=== PATIENT | male | born 1970 | race Caucasian/White ===

== ENCOUNTER 2016-11-25 13:40 | Inpatient (IN) | payer OTHER ==
[2016-11-25 14:29] VITALS: BMI 26.7
--- NOTE | 2016-11-25 17:05 | HP ---
CIWA Score - CIWA Score Nausea/Vomitin Muscle Tremors: 2 Anxiety: 3 Agitation: 2 Paroxysmal Sweats: 3 Orientation: 0-Oriented Tacttile Disturbances: 2-Mild Itch/Numbness/Burn Auditory Disturbances: 0-None Visual Disturbances: 0-None Headache: 0-None Present CIWA-Ar Total Score: 14 Admission ROS BHS - HPI Chief Complaint: I need help to stop using drug and alcohol. History of Present Illness: pt with h/o chronic alcoholism and crack abuse seeking detox. Exam Limitations: No Limitations - Ebola screening Have you traveled outside of the country in the last 21 days: No Have you had contact with anyone from an Ebola affected area: No Have you been sick,other than usual withdrawal symptoms: No Do you have a fever: No - Review of Systems Constitutional: Loss of Appetite, Malaise, Changes in sleep EENT: reports: Dental Problems Respiratory: reports: No Symptoms reported Cardiac: reports: No Symptoms Reported GI: reports: Nausea, Indigestion, Abdominal cramping : reports: No Symptoms Reported Musculoskeletal: reports: Joint Pain, Muscle Pain, Joint Stiffness Neuro: reports: Numbness (hands) Endocrine: reports: No Symptoms Reported Hematology: reports: No Symptoms Reported Psychiatric: reports: No Sypmtoms Reported Other Systems: Reviewed and Negative Patient History - Patient Medical History Hx Anemia: No Hx Asthma: No Hx Chronic Obstructive Pulmonary Disease (COPD): No Hx Cancer: No Hx Cardiac Disorders: No Hx Congestive Heart Failure: No Hx Hypertension: No Hx Hypercholesterolemia: No Hx Pacemaker: No HX Cerebrovascular Accident: No Hx Seizures: No Hx Dementia: No Hx Diabetes: No Hx Gastrointestinal Disorders: No Hx Liver Disease: No Hx Genitourinary Disorders: No Hx Sexually Transmitted Disorders: No Hx Renal Disease (ESRD): No Hx Thyroid Disease: No Hx Human Immunodeficiency Virus (HIV): Yes (1996 atripla ) Hx Hepatitis C: Yes (s/p tx. inf. rib ) Hx Depression: No Hx Suicide Attempt: No Hx Bipolar Disorder: No Hx Schizophrenia: No Other Medical History: h/o lbp rt sciatica - Patient Surgical History Hx Appendectomy: Yes - PPD History Documented Results: Negative w/o proof PPD to be Administered?: Yes - Reproductive History Patient is a Female of Child Bearing Age (11 -55 yrs old): No - Smoking Cessation Smoking history: Current some day smoker Aproximately how many cigarettes per day: 0 Cigars Per Day: 1 Hx Chewing Tobacco Use: No Initiated information on smoking cessation: Yes 'Breaking Loose' booklet given: 11/25/16 - Substance & Tx. History Hx Alcohol Use: No Hx Substance Use: Yes Substance Use Type: Alcohol, Cocaine, Heroin Hx Substance Use Treatment: Yes - Substances Abused Alcohol Route: Oral Frequency: Daily Amount used: vodka 1 pt. Age of first use: 14 Date of Last Use: 11/24/16 Cocaine Route: Injection Frequency: Daily Amount used: $10-20./d Age of first use: 17 Date of Last Use: 11/24/16 Family Disease History - Family Disease History Family History: Denies Family Disease History: Heart Disease: Mother (cad , [place]), [place]: Father (prostate) Admission Physical Exam [facility] - Vital Signs Vital Signs: Vital Signs - 24 hr 11/25/16 14:26 Temperature 98.6 F Pulse Rate 78 Respiratory 18 Rate Blood Pressure 128/58 - Physical General Appearance: Yes: Appropriately Dressed, Tremorous, Anxious HEENTM: Yes: EOMI, Hearing grossly Normal, Normocephalic, Normal Voice, MOE Respiratory: Yes: Chest Non-Tender, Lungs Clear, Normal Breath Sounds, No Respiratory Distress Neck: Yes: Supple, Trachea in good position Breast: Yes: Within Normal Limits Cardiology: Yes: Regular Rhythm, Regular Rate, S1, S2 Abdominal: Yes: Non Tender, Flat, Soft, Surgical Scar (rlq scar well healed) Genitourinary: Yes: Within Normal Limits Back: Yes: Decreased Range of Motion Musculoskeletal: Yes: Back pain, Muscle Pain Extremities: Yes: Tremors Neurological: Yes: software design engineer II-XII NML intact, Fully Oriented, Alert, Normal Response Integumentary: Yes: Moist Lymphatic: Yes: Within Normal Limits - Diagnostic (1) Alcohol dependence with uncomplicated withdrawal Current Visit: Yes Status: Chronic (2) Cocaine abuse Current Visit: Yes Status: Chronic (3) HIV (human immunodeficiency virus infection) Current Visit: Yes Status: Chronic (4) Right sided sciatica Current Visit: Yes Status: Chronic Cleared for Admission [facility] - Detox or Rehab [facility] Level of Care: Medically Managed Detox Regimen/Protocol: Librium [facility] Breath Alcohol Content Breath Alcohol Content: 0 Urine Drug Screen - Results Drug Screen Negative: No Urine Drug Screen Results: CLAUDIA-Cocaine, OPI-Opiates, MTD-Methadone
[2016-11-25] MEDS ORDERED: MAGNESIUM CITRATE 300 ML BOTTLE PO PRN (17:21)
[2016-11-25] MEDS ORDERED: IBUPROFEN 400 MG TABLET (FP) PO PRN (17:21)
[2016-11-25] MEDS ORDERED: MENTHOL/PHENOL 1 EACH UD MM PRN (17:21)
[2016-11-25] MEDS ORDERED: LOPERAMIDE HCL 2 MG CAPSULE PO PRN (17:21)
[2016-11-25] MEDS ORDERED: hydrOXYzine PAMOATE 25 MG CAPSULE (FP) PO PRN (17:21)
[2016-11-25] MEDS ORDERED: MAGNESIUM HYDROX 2400MG/30ML ORAL SUSPENSION 30 ML CUP PO PRN (17:21)
[2016-11-25] MEDS ORDERED: NICOTINE POLACRILEX 2 MG GUM BUC PRN (17:21)
[2016-11-25] MEDS ORDERED: P-EPHED 60MG/TRIPROLIDI 2.5MG TABLET PO PRN (17:21)
[2016-11-25] MEDS ORDERED: ACETAMINOPHEN 325 MG TABLET (FP) PO PRN (17:21)
[2016-11-25] MEDS ORDERED: MAG HYDROX/AL HYDROX/SIMETH 30 ML UNIT-DOSE CUP PO PRN (17:21)
[2016-11-25] MEDS ORDERED: guaiFENesin/D-METHORPHAN HB 10 ML UNIT-DOSE CUPS PO PRN (17:21)
[2016-11-25] MEDS: chlordiazePOXIDE HCL 25 MG CAPSULE PO PRN (19:45)
[2016-11-25] MEDS: diphenhydrAMINE HCL 50 MG CAPSULE PO PRN (22:12)
[2016-11-25] MEDS: THIAMINE HCL 100 MG TABLET (FP) PO SCH (22:12)
[2016-11-25] MEDS: chlordiazePOXIDE HCL 25 MG CAPSULE PO SCH (22:12)
[2016-11-26 00:37] LABS: URINE APPEARANCE CLEAR; URINE BILIRUBIN NEGATIVE (NEGATIVE); URINE BLOOD NEGATIVE (NEGATIVE); URINE COLOR AMBER; URINE GLUCOSE (UA) NEGATIVE (NEGATIVE); URINE KETONE NEGATIVE (NEGATIVE); URINE LEUK ESTERASE NEGATIVE (NEGATIVE); URINE NITRITE NEGATIVE (NEGATIVE); URINE UROBILINOGEN 4.0 E.U/dl E.U./dl (0.2-1.0)
[2016-11-26 00:51] LABS: URINE PROTEIN 1+ (NEGATIVE)
[2016-11-26 00:58] LABS: URINE MUCUS MODERATE; URINE RBC 3 /hpf (0-3); URINE WBC 1 /hpf (3-5)
[2016-11-26] MEDS: chlordiazePOXIDE HCL 25 MG CAPSULE PO SCH ×4 (05:59→22:15)
[2016-11-26] MEDS ORDERED: METHADONE HCL 40 MG DISPERSABLE TABLET PO SCH (09:30)
[2016-11-26] MEDS ORDERED: METHADONE HCL 10 MG TABLET ONE (10:04)
[2016-11-26] MEDS ORDERED: METHADONE HCL 40 MG DISPERSABLE TABLET ONE (10:04)
[2016-11-26] MEDS: METHADONE 80 MG, METHADONE 20 MG PO SCH (10:12)
[2016-11-26] MEDS: chlordiazePOXIDE HCL 25 MG CAPSULE PO PRN (10:12)
[2016-11-26] MEDS: PRENATAL VITAMINS W/ FOLIC ACID TABLET (FP) PO SCH (10:12)
[2016-11-26 10:14] LABS: MCH 30.2 pg (25.7-33.7); MCHC 33.1 g/dl (32.0-35.9); MEAN CELL VOLUME 91.1 fl (80-96); MEAN PLT VOLUME 10.4 fl (7.5-11.1); PLATELET COUNT 110 K/MM3 (134-434); RDW 14.1 % (11.9-15.9); WHITE BLOOD COUNT 3.6 K/mm3 (4.0-10.0)
[2016-11-26] MEDS: EMTRICITABINE 200MG/TENOFOVIR 300MG PO SCH (10:14)
[2016-11-26] MEDS: EFAVIRENZ 600 MG TABLET PO SCH (10:14)
--- NOTE | 2016-11-26 10:20 | CONSULT ---
[facility] Psychiatric Consult - Data Date of interview: 11/26/16 Admission source: [facility] Identifying data: First admission to [facility] for this 46 y/o male seeking detox treatment for alcohol,cocaine and heroin dependence.Patient is single without children,domiciled,unemployed and supported on [employer] funds. Substance Abuse History: - Smoking Cessation. Smoking history: Current some day smoker. Aproximately how many cigarettes per day: 0. Cigars Per Day: 1. Hx Chewing Tobacco Use: No. Initiated information on smoking cessation: Yes. ' Breaking Loose' booklet given: 11/25/16. - Substance & Tx. History. Hx Alcohol Use: No. Hx Substance Use: Yes. Substance Use Type: Alcohol, Cocaine, Heroin. Hx Substance Use Treatment: Yes. - Substances Abused. Alcohol. Route: Oral. Frequency: Daily. Amount used: vodka 1 pt. Age of first use: 14. Date of Last Use: 11/24/16. Cocaine. Route: Injection. Frequency: Daily. Amount used: $10-20./d. Age of first use: 17. Date of Last Use: . Confirmed by patient. Medical History: HIV infection since 1996 (on ART agents),hepatitis C,lower back pain and sciatica. Psychiatric History: Patient admits to one psychiatric hospitalization (1996) at [facility].Precipitant : discovery of seropositivity for HIV.Diagnosed with Stress Disorder.Mr Armstrong indicates that he was prescribed medications (names not recalled) that he never utilized.Currrently on methadone maintenance (100 mg/day).Patient denies history of suicide attempts. Physical/Sexual Abuse/Trauma History: Patient denies. Additional Comment: Urine Drug Screen Results: CLAUDIA-Cocaine, OPI-Opiates, MTD- Methadone.Noted. Mental Status Exam - Mental Status Exam Alert and Oriented to: Time, Place, Person Cognitive Function: Good Patient Appearance: Well Groomed Mood: Hopeful, Euthymic Affect: Appropriate, Normal Range Patient Behavior: Fatigued, Appropriate, Cooperative Speech Pattern: Clear Voice Loudness: Normal Thought Process: Goal Oriented Thought Disorder: Not Present Hallucinations: Denies Suicidal Ideation: Denies Homicidal Ideation: Denies Insight/Judgement: Poor Sleep: Poorly, Difficulty falling asleep Appetite: Good Muscle strength/Tone: Normal Gait/Station: Normal Psychiatric Findings - Problem List ([place] 1, 2,3) (1) Alcohol dependence with uncomplicated withdrawal Current Visit: Yes Status: Acute (2) Cocaine dependence Current Visit: Yes Status: Acute (3) Opioid dependence on agonist therapy Current Visit: Yes Status: Acute (4) HIV (human immunodeficiency virus infection) Current Visit: Yes Status: Chronic (5) Right sided sciatica Current Visit: Yes Status: Chronic (6) Insomnia Current Visit: Yes Status: Acute - Initial Treatment Plan Initial Treatment Plan: Psychoeducation.Detoxification.Seroquel 50 mg po at bedtime (patient's request).Side effects/benefits discussed with the patient.Observation.
--- NOTE | 2016-11-26 10:23 | EKG ---
Test Reason : Blood Pressure : / mmHG Vent. Rate : 057 BPM Atrial Rate : 057 BPM P-R Int : 172 ms QRS Dur : 086 ms QT Int : 424 ms P-R-T Axes : 061 054 048 degrees QTc Int : 412 ms SINUS BRADYCARDIA NO PREVIOUS ECGS AVAILABLE Confirmed by PIETER VELEZ MD ([id number]) on 11/26/2016 10:23:09 AM Referred By: Dominick Mays Confirmed By:PIETER VELEZ MD
--- NOTE | 2016-11-26 12:11 | PN ---
S CIWA - CIWA Score Nausea/Vomitin Muscle Tremors: 4-Moderate,w/Arms Extend Anxiety: 2 Agitation: 2 Paroxysmal Sweats: 3 Orientation: 0-Oriented Tacttile Disturbances: 2-Mild Itch/Numbness/Burn Auditory Disturbances: 0-None Visual Disturbances: 2-Mild Sensitivity Headache: 0-None Present CIWA-Ar Total Score: 18 S Progress Note (SOAP) Subjective: Sweating, Body Aches, Stomach Cramping, Tremors, Interrupted sleep. Objective: PT. A & O X 3. 11/26/16 12:10 Vital Signs Temperature 97.3 F L 11/26/16 10:41 Pulse Rate 111 H 11/26/16 10:41 Respiratory Rate 18 11/26/16 10:41 Blood Pressure 100/70 11/26/16 10:41 O2 Sat by Pulse Oximetry (%) Laboratory Last Values WBC 3.6 K/mm3 (4.0-10.0) L 11/26/16 07:00 RBC 4.96 M/mm3 (4.00-5.60) 11/26/16 07:00 Hgb 14.9 GM/dL (11.7-16.9) 11/26/16 07:00 Hct 45.1 % (35.4-49) 11/26/16 07:00 MCV 91.1 fl (80-96) 11/26/16 07:00 MCHC 33.1 g/dl (32.0-35.9) 11/26/16 07:00 RDW 14.1 % (11.9-15.9) 11/26/16 07:00 Plt Count 110 K/MM3 (134-434) L 11/26/16 07:00 MPV 10.4 fl (7.5-11.1) 11/26/16 07:00 Urine Color Marely 11/25/16 23:30 Urine Appearance Clear 11/25/16 23:30 Urine pH 6.0 (5.0-8.0) 11/25/16 23:30 Ur Specific [place] 1.030 (1.001-1.035) 11/25/16 23:30 Urine Protein 1+ (NEGATIVE) H 11/25/16 23:30 Urine Glucose (UA) Negative (NEGATIVE) 11/25/16 23:30 Urine Ketones Negative (NEGATIVE) 11/25/16 23:30 Urine Blood Negative (NEGATIVE) 11/25/16 23:30 Urine Nitrite Negative (NEGATIVE) 11/25/16 23:30 Urine Bilirubin Negative (NEGATIVE) 11/25/16 23:30 Urine Urobilinogen 4.0 e.u/dl E.U./dl (0.2-1.0) 11/25/16 23:30 Ur Leukocyte Esterase Negative (NEGATIVE) 11/25/16 23:30 Urine RBC 3 /hpf (0-3) 11/25/16 23:30 Urine WBC 1 /hpf (3-5) 11/25/16 23:30 Ur Epithelial Cells Rare /hpf (FEW) 11/25/16 23:30 Urine Mucus Moderate 11/25/16 23:30 LABS NOTED. Assessment: 11/26/16 12:11 WITHDRAWAL SYMPTOMS. Plan: CONTINUE DETOX. ADVISED PATIENT TO FOLLOW-UP WITH [facility]INEER / REHAB MEDICAL PROVIDER AFTER DISCHARGE FROM DETOX FOR GENERAL MEDICAL ASSESSMENT AND FOR ANY ABNORMAL ADMISSION LAB VALUES.
[2016-11-26 12:15] LABS: ALK PHOS 126 U/L (45-117); ANION GAP 12 (8-16); BILIRUBIN,TOTAL 0.3 mg/dL (0.2-1.0); CALCIUM 9.2 mg/dL (8.5-10.1); CO2 27 mmol/L (21-32); CREATININE 0.9 mg/dL (0.7-1.3); GLUCOSE,RANDOM 89 mg/dL (74-106); SGOT/AST 41 U/L (15-37); SGPT/ALT 47 U/L (12-78); TOT PROT 7.9 g/dl (6.4-8.2)
[2016-11-26] MEDS: QUEtiapine FUMARATE 50 MG TABLET PO SCH (22:15)
[2016-11-26] MEDS: THIAMINE HCL 100 MG TABLET (FP) PO SCH (22:15)
[2016-11-26] MEDS: diphenhydrAMINE HCL 50 MG CAPSULE PO PRN (22:16)
[2016-11-27] MEDS ORDERED: METHADONE HCL 40 MG DISPERSABLE TABLET ONE (03:39)
[2016-11-27] MEDS ORDERED: METHADONE HCL 10 MG TABLET ONE (03:39)
[2016-11-27] MEDS: METHADONE 80 MG, METHADONE 20 MG PO SCH (05:35)
[2016-11-27] MEDS: chlordiazePOXIDE HCL 25 MG CAPSULE PO SCH ×3 (05:35→17:20)
[2016-11-27] MEDS: EFAVIRENZ 600 MG TABLET PO SCH (10:30)
[2016-11-27] MEDS: PRENATAL VITAMINS W/ FOLIC ACID TABLET (FP) PO SCH (10:30)
[2016-11-27] MEDS: EMTRICITABINE 200MG/TENOFOVIR 300MG PO SCH (10:30)
--- NOTE | 2016-11-27 13:05 | PN ---
[facility] CIWA - CIWA Score Nausea/Vomitin-No Nausea/No Vomiting Muscle Tremors: 3 Anxiety: 4-Mod. Anxious/Guarded Agitation: 3 Paroxysmal Sweats: 3 Orientation: 0-Oriented Tacttile Disturbances: 0-None Auditory Disturbances: 0-None Visual Disturbances: 0-None Headache: 0-None Present CIWA-Ar Total Score: 13 BHS Progress Note (SOAP) Subjective: Anxiety,tremors,sweating,interrupted sleep,restless Objective: 11/27/16 13:04 Vital Signs - 8 hr 11/27/16 11/27/16 06:19 09:27 Temperature 97.9 F 96.0 F L Pulse Rate 80 72 Respiratory 18 18 Rate Blood Pressure 102/72 99/68 Laboratory Tests 11/25/16 11/26/16 11/26/16 23:30 07:00 07:00 WBC 3.6 L RBC 4.96 Hgb 14.9 Hct 45.1 MCV 91.1 MCHC 33.1 RDW 14.1 Plt Count 110 L MPV 10.4 Sodium 139 Potassium 4.0 Chloride 100 Carbon Dioxide 27 Anion Gap 12 BUN 10 Creatinine 0.9 Creat Clearance w eGFR > 60 Random Glucose 89 Calcium 9.2 Total Bilirubin 0.3 AST 41 H ALT 47 Alkaline Phosphatase 126 H Total Protein 7.9 Albumin 4.0 Urine Color Marely Urine Appearance Clear Urine pH 6.0 Ur Specific [place] 1.030 Urine Protein 1+ H Urine Glucose (UA) Negative Urine Ketones Negative Urine Blood Negative Urine Nitrite Negative Urine Bilirubin Negative Urine Urobilinogen 4.0 e.u/dl Ur Leukocyte Esterase Negative Urine RBC 3 Urine WBC 1 Ur Epithelial Cells Rare Urine Mucus Moderate RPR Titer 11/26/16 07:00 WBC RBC Hgb Hct MCV MCHC RDW Plt Count MPV Sodium Potassium Chloride Carbon Dioxide Anion Gap BUN Creatinine Creat Clearance w eGFR Random Glucose Calcium Total Bilirubin AST ALT Alkaline Phosphatase Total Protein Albumin Urine Color Urine Appearance Urine pH Ur Specific [place] Urine Protein Urine Glucose (UA) Urine Ketones Urine Blood Urine Nitrite Urine Bilirubin Urine Urobilinogen Ur Leukocyte Esterase Urine RBC Urine WBC Ur Epithelial Cells Urine Mucus RPR Titer Nonreactive labs noted Assessment: 11/27/16 13:05 Withdrawal sx. Plan: Continue detox
[2016-11-27] MEDS: chlordiazePOXIDE HCL 25 MG CAPSULE PO PRN (14:34)
[2016-11-27] MEDS: diphenhydrAMINE HCL 50 MG CAPSULE PO PRN (22:17)
[2016-11-27] MEDS: THIAMINE HCL 100 MG TABLET (FP) PO SCH (22:17)
[2016-11-27] MEDS: chlordiazePOXIDE 5 MG CAPSULE PO SCH (22:17)
[2016-11-27] MEDS: QUEtiapine FUMARATE 50 MG TABLET PO SCH (22:17)
[2016-11-27] MEDS: IBUPROFEN 600 MG TABLET (FP) PO PRN (22:19)
[2016-11-28] MEDS ORDERED: METHADONE HCL 10 MG TABLET ONE (03:07)
[2016-11-28] MEDS ORDERED: METHADONE HCL 40 MG DISPERSABLE TABLET ONE (03:07)
[2016-11-28] MEDS: chlordiazePOXIDE 5 MG CAPSULE PO SCH ×3 (05:46→17:21)
[2016-11-28] MEDS: METHADONE 80 MG, METHADONE 20 MG PO SCH (05:46)
[2016-11-28] MEDS: EMTRICITABINE 200MG/TENOFOVIR 300MG PO SCH (10:15)
[2016-11-28] MEDS: PRENATAL VITAMINS W/ FOLIC ACID TABLET (FP) PO SCH (10:15)
[2016-11-28] MEDS: EFAVIRENZ 600 MG TABLET PO SCH (10:15)
--- NOTE | 2016-11-28 11:03 | PN ---
BHS Progress Note (SOAP) Subjective: Sweating,interrupted sleep,restless Objective: 11/28/16 11:02 Vital Signs - 8 hr 11/28/16 11/28/16 11/28/16 03:31 06:23 09:34 Temperature 97.0 F L 97.2 F L Pulse Rate 69 72 Respiratory 18 16 16 Rate Blood Pressure 93/64 95/65 Laboratory Last Values WBC 3.6 K/mm3 (4.0-10.0) L 11/26/16 07:00 RBC 4.96 M/mm3 (4.00-5.60) 11/26/16 07:00 Hgb 14.9 GM/dL (11.7-16.9) 11/26/16 07:00 Hct 45.1 % (35.4-49) 11/26/16 07:00 MCV 91.1 fl (80-96) 11/26/16 07:00 MCHC 33.1 g/dl (32.0-35.9) 11/26/16 07:00 RDW 14.1 % (11.9-15.9) 11/26/16 07:00 Plt Count 110 K/MM3 (134-434) L 11/26/16 07:00 MPV 10.4 fl (7.5-11.1) 11/26/16 07:00 Sodium 139 mmol/L (136-145) 11/26/16 07:00 Potassium 4.0 mmol/L (3.5-5.1) 11/26/16 07:00 Chloride 100 mmol/L (98-107) 11/26/16 07:00 Carbon Dioxide 27 mmol/L (21-32) 11/26/16 07:00 Anion Gap 12 (8-16) 11/26/16 07:00 BUN 10 mg/dL (7-18) 11/26/16 07:00 Creatinine 0.9 mg/dL (0.7-1.3) 11/26/16 07:00 Creat Clearance w eGFR > 60 (>60) 11/26/16 07:00 Random Glucose 89 mg/dL (74-106) 11/26/16 07:00 Calcium 9.2 mg/dL (8.5-10.1) 11/26/16 07:00 Total Bilirubin 0.3 mg/dL (0.2-1.0) 11/26/16 07:00 AST 41 U/L (15-37) H 11/26/16 07:00 ALT 47 U/L (12-78) 11/26/16 07:00 Alkaline Phosphatase 126 U/L (45-117) H 11/26/16 07:00 Total Protein 7.9 g/dl (6.4-8.2) 11/26/16 07:00 Albumin 4.0 g/dl (3.4-5.0) 11/26/16 07:00 Urine Color Marely 11/25/16 23:30 Urine Appearance Clear 11/25/16 23:30 Urine pH 6.0 (5.0-8.0) 11/25/16 23:30 Ur Specific [place] 1.030 (1.001-1.035) 11/25/16 23:30 Urine Protein 1+ (NEGATIVE) H 11/25/16 23:30 Urine Glucose (UA) Negative (NEGATIVE) 11/25/16 23:30 Urine Ketones Negative (NEGATIVE) 11/25/16 23:30 Urine Blood Negative (NEGATIVE) 11/25/16 23:30 Urine Nitrite Negative (NEGATIVE) 11/25/16 23:30 Urine Bilirubin Negative (NEGATIVE) 11/25/16 23:30 Urine Urobilinogen 4.0 e.u/dl E.U./dl (0.2-1.0) 11/25/16 23:30 Ur Leukocyte Esterase Negative (NEGATIVE) 11/25/16 23:30 Urine RBC 3 /hpf (0-3) 11/25/16 23:30 Urine WBC 1 /hpf (3-5) 11/25/16 23:30 Ur Epithelial Cells Rare /hpf (FEW) 11/25/16 23:30 Urine Mucus Moderate 11/25/16 23:30 RPR Titer Nonreactive (NONREACTIVE) 11/26/16 07:00 labs noted Assessment: 11/28/16 11:03 Withdrawal sx. Plan: Continue detox
[2016-11-28] MEDS: chlordiazePOXIDE HCL 25 MG CAPSULE PO PRN (13:05)
[2016-11-28] MEDS: IBUPROFEN 600 MG TABLET (FP) PO PRN (13:56)
[2016-11-28] MEDS: CYCLOBENZAPRINE HCL 10 MG TABLET (FP) PO PRN (13:56)
[2016-11-28] MEDS: chlordiazePOXIDE HCL 10 MG CAPSULE PO SCH (22:19)
[2016-11-28] MEDS: QUEtiapine FUMARATE 50 MG TABLET PO SCH (22:19)
[2016-11-28] MEDS: THIAMINE HCL 100 MG TABLET (FP) PO SCH (22:19)
[2016-11-29] MEDS: IBUPROFEN 600 MG TABLET (FP) PO PRN (03:45)
[2016-11-29] MEDS ORDERED: METHADONE HCL 40 MG DISPERSABLE TABLET ONE (04:40)
[2016-11-29] MEDS ORDERED: METHADONE HCL 10 MG TABLET ONE (04:40)
[2016-11-29] MEDS: chlordiazePOXIDE HCL 10 MG CAPSULE PO SCH (05:30)
[2016-11-29] MEDS: CYCLOBENZAPRINE HCL 10 MG TABLET (FP) PO PRN (05:30)
[2016-11-29] MEDS: METHADONE 80 MG, METHADONE 20 MG PO SCH (05:30)
[2016-11-29 10:23] VITALS: BP 116/77; PULSE 88; TEMP 98.1
--- NOTE | 2016-11-29 10:53 | DS ---
[facility] Detox Discharge Summary Admission Date: 11/25/16 Discharge Date: 11/29/16 - History Present History: Alcohol Dependence, Cocaine Dependence, MMTP Pertinent Past History: HIV infection Sciatica - Physical Exam Results Vital Signs: Vital Signs Temperature 98.1 F 11/29/16 10:22 Pulse Rate 88 11/29/16 10:22 Respiratory Rate 20 11/29/16 10:22 Blood Pressure 116/77 11/29/16 10:22 O2 Sat by Pulse Oximetry (%) Pertinent Admission Physical Exam Findings: Withdrawal sx. Laboratory Last Values WBC 3.6 K/mm3 (4.0-10.0) L 11/26/16 07:00 RBC 4.96 M/mm3 (4.00-5.60) 11/26/16 07:00 Hgb 14.9 GM/dL (11.7-16.9) 11/26/16 07:00 Hct 45.1 % (35.4-49) 11/26/16 07:00 MCV 91.1 fl (80-96) 11/26/16 07:00 MCHC 33.1 g/dl (32.0-35.9) 11/26/16 07:00 RDW 14.1 % (11.9-15.9) 11/26/16 07:00 Plt Count 110 K/MM3 (134-434) L 11/26/16 07:00 MPV 10.4 fl (7.5-11.1) 11/26/16 07:00 Sodium 139 mmol/L (136-145) 11/26/16 07:00 Potassium 4.0 mmol/L (3.5-5.1) 11/26/16 07:00 Chloride 100 mmol/L (98-107) 11/26/16 07:00 Carbon Dioxide 27 mmol/L (21-32) 11/26/16 07:00 Anion Gap 12 (8-16) 11/26/16 07:00 BUN 10 mg/dL (7-18) 11/26/16 07:00 Creatinine 0.9 mg/dL (0.7-1.3) 11/26/16 07:00 Creat Clearance w eGFR > 60 (>60) 11/26/16 07:00 Random Glucose 89 mg/dL (74-106) 11/26/16 07:00 Calcium 9.2 mg/dL (8.5-10.1) 11/26/16 07:00 Total Bilirubin 0.3 mg/dL (0.2-1.0) 11/26/16 07:00 AST 41 U/L (15-37) H 11/26/16 07:00 ALT 47 U/L (12-78) 11/26/16 07:00 Alkaline Phosphatase 126 U/L (45-117) H 11/26/16 07:00 Total Protein 7.9 g/dl (6.4-8.2) 11/26/16 07:00 Albumin 4.0 g/dl (3.4-5.0) 11/26/16 07:00 Urine Color Marely 11/25/16 23:30 Urine Appearance Clear 11/25/16 23:30 Urine pH 6.0 (5.0-8.0) 11/25/16 23:30 Ur Specific [place] 1.030 (1.001-1.035) 11/25/16 23:30 Urine Protein 1+ (NEGATIVE) H 11/25/16 23:30 Urine Glucose (UA) Negative (NEGATIVE) 11/25/16 23:30 Urine Ketones Negative (NEGATIVE) 11/25/16 23:30 Urine Blood Negative (NEGATIVE) 11/25/16 23:30 Urine Nitrite Negative (NEGATIVE) 11/25/16 23:30 Urine Bilirubin Negative (NEGATIVE) 11/25/16 23:30 Urine Urobilinogen 4.0 e.u/dl E.U./dl (0.2-1.0) 11/25/16 23:30 Ur Leukocyte Esterase Negative (NEGATIVE) 11/25/16 23:30 Urine RBC 3 /hpf (0-3) 11/25/16 23:30 Urine WBC 1 /hpf (3-5) 11/25/16 23:30 Ur Epithelial Cells Rare /hpf (FEW) 11/25/16 23:30 Urine Mucus Moderate 11/25/16 23:30 RPR Titer Nonreactive (NONREACTIVE) 11/26/16 07:00 Labs noted - Treatment Hospital Course: Detox Protocol Followed, Detoxed Safely, Responded well, Discharged Condition Good, Rehab Referral Accepted Patient has Accepted a Rehab Referral to: [facility] & 12-step meetings - Medication Discharge Medications: Ambulatory Orders Efavirenz [Sustiva -] 50 mg PO DAILY 11/25/16 Emtricitabine/Tenofovir [Truvada] 1 tab PO DAILY 11/25/16 Quetiapine Fumarate [Seroquel -] 50 mg PO HS #30 tablet 11/26/16 - Diagnosis (1) Alcohol dependence with uncomplicated withdrawal Current Visit: Yes Status: Acute (2) Cocaine dependence Current Visit: Yes Status: Acute Qualifiers: Substance use status: uncomplicated Qualified Code(s): F14.20 - Cocaine dependence, uncomplicated (3) Insomnia Current Visit: Yes Status: Acute (4) Opioid dependence on agonist therapy Current Visit: Yes Status: Acute (5) HIV (human immunodeficiency virus infection) Current Visit: Yes Status: Chronic (6) Right sided sciatica Current Visit: Yes Status: Chronic - AMA Did Patient Leave Against Medical Advice: No
== END 2016-11-29 09:19 | disposition home or self-care (01) | DRG 773 ==
LOC: YASAS 13:40 → Y3N 18:05
PROVIDERS: ADMIT Internal Medicine; ATTEND Internal Medicine
PROC: HZ2ZZZZ Detoxification Services for Substance Abuse Treatment (ICD-10-PCS; principal; 2016-11-25)
DX: F10.230 Alcohol dependence with withdrawal, uncomplicated (principal); F11.20 Opioid dependence, uncomplicated; F14.20 Cocaine dependence, uncomplicated; G47.00 Insomnia, unspecified; Z21 Asymptomatic human immunodeficiency virus [HIV] infection status; M54.31 Sciatica, right side; B18.2 Chronic viral hepatitis C
CPT/HCPCS: 36415; 80053; 81003; 81015; 85027; 86593; 93005; 93010